=== PATIENT | male | born 1955 | race Caucasian/White ===

== ENCOUNTER 2021-12-08 16:12 | Emergency (ER) | payer BC, SELFPAY ==
[2021-12-08 16:32] VITALS: BP 88/53; PULSE 53; RESP 16; TEMP 36.9; O2SAT 97; BMI 24.3
--- NOTE | 2021-12-08 16:34 | XRR_ITS ---
PROCEDURE INFORMATION: Exam: XR Left Finger(s) Exam date and time: 12/08/2021 4:53 PM Age: 66 years old Clinical indication: Pain; Finger(s); Left; Patient HX: 4th finger; Additional info: Trauma; 4th TECHNIQUE: Imaging protocol: Radiologic exam of the Left fingers. Views: Minimum 2 views. COMPARISON: No relevant prior studies available. FINDINGS: Bones/joints: There is partial osseous amputation of the distal 4th phalangeal tuft. Joint alignment is normal. The remainder of the hand is unremarkable. Soft tissues: There is partial soft tissue amputation at the tip of the 4th finger. No radiopaque foreign body. XR/XR finger LT min 2V [id number] IMPRESSION: 1. Partial soft tissue and osseous amputation at the tip of the 4th finger involving a portion of the distal 4th phalangeal tuft. 2. No radiopaque foreign body.
--- NOTE | 2021-12-08 16:39 | ED_ITS ---
Documented by User: [email or web address] Gallego 12/08/21 16:49 HPI - Extremity Injury (Upper) General: Chief Complaint: Extremity Injury, Upper Stated Complaint: smashed finger left hand Time Seen by Provider: 12/08/21 16:35 Source: patient and family Mode of arrival: ambulatory Limitations: no limitations History of Present Illness: Patient is a 66-year-old male who presents to ED t [facility] along with his for evaluation of a left finger injury that he sustained just prior to arrival after he smashed the left fourth finger in a wood splitter. Last tetanus is unknown. He has no other injuries or complaints at this time. MD complaint: injury to: left and finger Onset (ago): hour(s) Other Extremity Injury: Left: fingers Other injuries: none Place: home Severity: moderate Context: direct blow, laceration, crush and injury Associated symptoms: Reports no associated symptoms; Denies weakness in extremities Treatments prior to arrival: bandage Review of Systems Musc: Reports: extremity pain (L 4th finger) Neuro: Denies: numbness in extremities, weakness in extremities or sensory changes Physical Exam Const: COMMON NORMALS: average body habitus, patient oriented x3, no limitations, healthy appearing, alert and well nourished GENERAL APPEARANCE: cooperative and anxious Extremity: GENERAL: Yes normal exam except as noted LEFT UPPER EXTREMITY: Yes hand & digits Left hand and digits: Yes ROM (normal) and Yes neurovascular exam (normal) OTHER: pt has an avulsion/amputation to the distal palmar pad of his L 4th finger; there does not appear to be any nail damage on volar aspect; I do not visualize any exposed bone or tendon at this time Neuro: COMMON NORMALS: patient oriented x3, moves all extremities, no focal motor deficits and no sensory deficits noted SENSORIUM/ORIENTATION: Yes alert Skin: NARRATIVE SKIN EXAM: see extremity assessment for pertinent skin findings Course ED course: Shortly after initial examination in triage patient becoming more anxious stating pain is increasing. He is hyperventilating. BP soft. He was taken to room 10 and we will start IV and give some fluids and pain/nausea meds and reassess. Vital Signs: Vital signs: Vital Signs Temperature 98.4 F 12/08/21 16:32 Pulse Rate 72 12/08/21 17:10 Respiratory Rate 20 H 12/08/21 17:10 Blood Pressure 123/79 12/08/21 17:10 Pulse Oximetry 100 12/08/21 17:10 MDM - Extremity Injury (Upper) Lab Data Radiology Impressions Finger X-Ray 12/08/21 16:34 IMPRESSION: 1. Partial soft tissue and osseous amputation at the tip of the 4th finger involving a portion of the distal 4th phalangeal tuft. 2. No radiopaque foreign body. Discharge Plan Discharge Patient Disposition: Home Clinical Impression: Vasovagal near-syncope Avulsion of finger tip Qualifiers: Encounter type: initial encounter Qualified Code(s): S61.209A - Unspecified open wound of unspecified finger without damage to nail, initial encounter Condition: Stable Prescriptions: New hydrocodone-acetaminophen 5-325 mg tablet 1 tab PO Q6H PRN (Reason: pain (scale score 7-10)) Qty: 14 0RF cephalexin 500 mg tablet 500 mg PO Q8H 7 Days Qty: 21 0RF Discharge Orders: Discharge ED (Routine); Ordered 12/08/21 Ordered By: Jesus Shelley Referrals: Avery James MD [Primary Care Provider] - Discharge Diet: Usual diet Discharge Activity: Increase activity as tolerated Patient Instructions: Skin Avulsion (ED), Opioid Safety Activity Restrictions/Additional Instructions: Keep wound clean and dry. Leave initial dressing on for the next 2 days. Follow-up with primary care in 2 days for recheck. At that time primary care may refer you to wound care for further management. Use acetaminophen and ibuprofen for control of pain. Use hydrocodone for severe pain. If wound becomes wet or soiled change the dressing. Apply a nonstick dressing to the wound site. Apply a light layer of Vaseline to the gauze to prevent sticking. And then wrapped the finger with supportive dressing. Return to the ER for uncontrolled pain, fever greater than 100.4, or new concerns. Sign Out Sign Out Data: Patient Sign Out occurred on 12/08/21 at 17:07. Patient's care was discussed, and care was transferred from to Jesus Shelley. Post-Handoff Eval: patient resting well, blood pressure 123 systolic, patient has continued pain in finger, digital block performed with good results. Coding Level of Care Code ED Manager [employer] for [employer] Fwd Exam Expanded Problem Focused Documented by User: [email or web address] Robert 12/08/21 17:50 HPI - Extremity Injury (Upper) General: Chief Complaint: Extremity Injury, Upper Stated Complaint: smashed finger left hand Time Seen by Provider: 12/08/21 16:35 Procedures Nerve Block Nerve Block 1: Local Anesthetic: lidocaine 1% Amount of anesthesia used (mL): 4 Side: left Nerve Blocks: digital Procedure Successful: Yes Patient Tolerated Procedure: well Complications: pain with procedure Course Vital Signs: Vital signs: Vital Signs Temperature 98.4 F 12/08/21 16:32 Pulse Rate 72 12/08/21 17:10 Respiratory Rate 20 H 12/08/21 17:10 Blood Pressure 123/79 12/08/21 17:10 Pulse Oximetry 100 12/08/21 17:10 MDM - Extremity Injury (Upper) Medical Decision Making 66-year-old male patient comes in today with injury to the left ring finger. Patient was working with a wood splitter and caught the tip of the finger causing an avulsion to the pad and distal tip of the finger. On arrival to the ER patient became lightheaded and his blood pressure dropped. This is most likely due to a vasovagal response to patient's pain and injury. Patient r ecovered with IV fluids and pain control. Examination of the wound notes distal damage to the nail without involvement of the base of the nail plate. Patient has an avulsion of the pad of the finger. Normal tendon function is noted. Differential diagnosis includes avulsion of fingertip, fracture of bone, laceration, foreign body. X-ray noted a tuft fracture with loss of bone, no foreign body, no dislocation. Wound was cleaned with mild soap and water. Dressing applied. Patient was given 1 g of Ancef and medications for pain control. Patient will follow-up with primary care who will refer to wound care for manage themselves. Patient was continued on cephalexin 500 mg 3 times a day for the next 7 days. Instructed on care of the wound. Short course of hydrocodone for severe pain. Lab Data Radiology Impressions Finger X-Ray 12/08/21 16:34 IMPRESSION: 1. Partial soft tissue and osseous amputation at the tip of the 4th finger involving a portion of the distal 4th phalangeal tuft. 2. No radiopaque foreign body. Discharge Plan Discharge Patient Disposition: Home Clinical Impression: Vasovagal near-syncope Avulsion of finger tip Qualifiers: Encounter type: initial encounter Qualified Code(s): S61.209A - Unspecified open wound of unspecified finger without damage to nail, initial encounter Condition: Stable Prescriptions: New hydrocodone-acetaminophen 5-325 mg tablet 1 tab PO Q6H PRN (Reason: pain (scale score 7-10)) Qty: 14 0RF cephalexin 500 mg tablet 500 mg PO Q8H 7 Days Qty: 21 0RF Discharge Orders: Discharge ED (Routine); Ordered 12/08/21 Ordered By: Jesus Shelley Referrals: Avery James MD [Primary Care Provider] - Discharge Diet: Usual diet Discharge Activity: Increase activity as tolerated Patient Instructions: Skin Avulsion (ED), Opioid Safety Activity Restrictions/Additional Instructions: Keep wound clean and dry. Leave initial dressing on for the next 2 days. Follow-up with primary care in 2 days for recheck. At that time primary care may refer you to wound care for further management. Use acetaminophen and ibuprofen for control of pain. Use hydrocodone for severe pain. If wound becomes wet or soiled change the dressing. Apply a nonstick dressing to the wound site. Apply a light layer of Vaseline to the gauze to prevent sticking. And then wrapped the finger with supportive dressing. Return to the ER for uncontrolled pain, fever greater than 100.4, or new concerns. Sign Out Sign Out Data: Patient Sign Out occurred on 12/08/21 at 17:07. Patient's care was discussed, and care was transferred from to Jesus Shelley. Post-Handoff Eval: patient resting well, blood pressure 123 systolic, patient has continued pain in finger, digital block performed with good results. Coding Level of Care Code ED Manager [employer] for [employer] Fwd Exam Expanded Problem Focused
[2021-12-08 16:44] VITALS: BP 75/47
[2021-12-08] MEDS: sodium chloride 0.9% 1,000 ML 999 ML IV (16:59)
[2021-12-08] MEDS: tetanus-diphtheria tox (adult) 0.5 mL SDV IM (17:01)
[2021-12-08] MEDS: ondansetron 2 mg/ML SDV 2 mL 4 MG IVP (17:03)
[2021-12-08 17:05] VITALS: RESP 20
[2021-12-08] MEDS: morphine 4 mg/mL SDV 1 mL IVP (17:05)
[2021-12-08 17:10] VITALS: BP 123/79; PULSE 72; RESP 20; O2SAT 100
[2021-12-08] MEDS: ceFAZolin 1,000 MG in sodium chloride 0.9% (plus) 50 ML 100 MG IV (17:57)
== END 2021-12-08 18:15 | disposition home or self-care (01) ==
PROVIDERS: Emergency Provider Nurse Practitioner Family; PCP Family Medicine
DX: S68.125A Partial traumatic metacarpophalangeal amputation of left ring finger, initial encounter (principal); W31.89XA Contact with other specified machinery, initial encounter; Z23 Encounter for immunization
CPT/HCPCS: 73140; 90471; 90714; 96365; 96375; 99284; J0690; J2270; J2405; J7030